=== PATIENT | female | born 2005 | race Caucasian/White ===

== ENCOUNTER 2023-07-16 13:57 | Outpatient (OUT) | payer BC, SELFPAY ==
--- NOTE | 2023-07-16 14:09 | US_ITS ---
[address] [address] Patient Name: REBECCA NESBITT MRN: [id number] date: 2005 Sex: F Assigned Patient Location: US Current Patient Location: Accession/Order Number: [id number] Exam Date: 07/16/2023 14:15 Report Date: 07/16/2023 15:11 At the request of: ROXIE FERMIN Procedure: US OB <= 14 weeks fetus EXAMINATION: US OB <= 14 weeks fetus HISTORY: Amenorrhea N91.2, Positive Test Z32.01 COMPARISON: No relevant comparison available. FINDINGS: Barba intrauterine gestation Gestational sac: 4.3 cm, 9 weeks 5 days CRL: 4.23 cm, 11 weeks 1 day Heart rate: 173 beats minute Yolk sac: Not visualized Cervix: Closed, 3.7 cm, seen transabdominally Identified adjacent to the gestational sac is a 1.4 x 1.3 x 0.8 cm area of hypoechogenicity. The uterus is anteverted. The right ovary is normal. The left ovary is not visualized Clinical age: 14weeks 2 days Clinical SHY: 01/12/2024 Ultrasound age: 11 weeks 1 day Ultrasound SHY: 02/03/2024 US/US OB <= 14 weeks fetus IMPRESSION: Viable barba intrauterine gestation measuring 11 weeks 1 day Electronically authenticated by: ARTEMIO RYDER Date: 07/16/2023 15:11
== END 2023-07-16 13:58 | disposition home or self-care (01) ==
PROVIDERS: PCP Family Medicine; Visit Provider Midwife
DX: Z32.01 Encounter for pregnancy test, result positive (principal); Z3A.11 11 weeks gestation of pregnancy; N91.2 Amenorrhea, unspecified
CPT/HCPCS: 76801